=== PATIENT | female | born 1960 | race Asian ===

== ENCOUNTER 2022-04-15 07:13 | Day surgery (SDC) | payer OTHER ==
[~2022-04-15] VITALS: Ht 165.1 cm; Wt 59.0 kg
[~2022-04-15 07:13] MED LIST: SODIUM CHLORIDE 0.9% 1,000 ML IV ONE
[2022-04-15 07:47] LABS: COVID AG,FIA SOURCE NASOPHARYNGEAL
[2022-04-15] MEDS ORDERED: SODIUM CHLORIDE 0.9% 1,000 ML ONE (07:59)
[2022-04-15] MEDS ORDERED: LIDOCAINE/PF 2% 5 ML VIAL IM ONE (12:00)
[2022-04-15] MEDS ORDERED: PROPOFOL 1% 20 ML VIAL IVP ONE (12:00)
== END 2022-04-15 11:35 | disposition home or self-care (01) ==
LOC: SURGERY 07:13
PROVIDERS: ATTEND Student in an Organized Health Care Education/Training Program
DX: Z12.11 Encounter for screening for malignant neoplasm of colon (principal); K63.5 Polyp of colon; K29.50 Unspecified chronic gastritis without bleeding; K64.4 Residual hemorrhoidal skin tags; K64.8 Other hemorrhoids; K21.9 Gastro-esophageal reflux disease without esophagitis; K57.30 Diverticulosis of large intestine without perforation or abscess without bleeding; K25.9 Gastric ulcer, unspecified as acute or chronic, without hemorrhage or perforation; Z79.899 Other long term (current) drug therapy; Z98.890 Other specified postprocedural states
CPT/HCPCS: 45380; 43239; 87426; 88305; 88312; 88313; C1769; J2704; J3490; J7030; C9803